=== PATIENT | male | born 1985 | race Caucasian/White ===

== ENCOUNTER 2023-08-11 20:17 | Emergency (ER) | payer BC ==
[~2023-08-11] VITALS: Ht 172.7 cm; Wt 90.7 kg
--- NOTE | 2023-08-11 21:05 | ED Lower Extremity ---
General Chief Complaint: Lower Extremity Stated Complaint: RIGHT KNEE/ANKLE SWELLING/PAIN Nursing Triage Note: TO ED VIA POV AND AMBULATORY TO ROOM 3 WITH C/O RIGHT KNEE SWELLING SINCE LAST SATURDAY AND RIGHT ANKLE SWELLING SINCE LAST SATURDAY. PT STATES HE WAS SEEN AT [facility] ON SATURDAY AND HE STATED THEY ASPIRATED FLUID FROM RIGHT KNEE, BUT DID NOT "TEST" IT. DENIES INJURY. Source: patient Exam Limitations: no limitations History of Present Illness Date Seen by Provider: Aug 11, 2023 Time Seen by Provider: 21:04 Onset: last week Allergies and Home Medications Allergies Coded Allergies: No Known Drug Allergies (Unverified , 08/11/23) Past Mwcckka-[id number]-[id number] Hx Patient Social History Tobacco Use?: Yes Tobacco type used: Cigarettes Smoking Status: Current Everyday Smoker Additional substance use comme: DENIES Alcohol Use?: Yes Alcohol type: Beer Alcohol Frequency: Daily Physical Exam Vital Signs Vital Signs - First Documented 08/11/23 20:39 Temp 36.7 Pulse 105 Resp 18 B/P (MAP) 131/99 (110) Pulse Ox 99 O2 Delivery Room Air Capillary Refill : Less Than 3 Seconds Height, Weight, BMI Height: '" Weight: lbs. oz. kg; 30.00 BMI Method: Progress/Results/Core Measures Results/Orders My Orders Orders - YESY GUAMAN MD Knee, 3 Views, Bilateral (08/11/23 21:13) Colchicine Tablet (Colchicine Tablet) (08/11/23 21:15) Hydrocodone/Apap 5/325 Tablet (Hydrocod (08/11/23 21:15) Colchicine Tablet (Colchicine Tablet) (08/11/23 21:30) Medications Given in ED Current Medications Medications Dose Ordered Sig/Radha Route Start Time Stop Time Status Last Admin Dose Admin Acetaminophen/ Hydrocodone Bitart 1 ea ONCE ONCE PO 08/11/23 21:15 08/11/23 21:16 DC 08/11/23 21:35 1 EA Colchicine 0.6 mg ONCE ONCE PO 08/11/23 21:30 08/11/23 21:31 DC 08/11/23 21:35 0.6 MG Colchicine 1.2 mg ONCE ONCE PO 08/11/23 21:15 08/11/23 21:16 DC 08/11/23 21:35 1.2 MG Vital Signs/I&O 08/11/23 20:39 Temp 36.7 Pulse 105 Resp 18 B/P (MAP) 131/99 (110) Pulse Ox 99 O2 Delivery Room Air Blood Pressure Mean: 110 Departure Impression Primary Impression: Knee pain Qualified Codes: M25.561 - Pain in right knee Disposition: HOME, SELF-CARE Condition: Stable Departure-Patient Inst. Decision time for Depature: 21:55 Referrals: NO,LOCAL PHYSICIAN (PCP/Family) Primary Care Physician Patient Instructions: Knee Pain ED Add. Discharge Instructions: Ice packs for swelling. Elevate for swelling. Hydrocodome 1 pill every 6 hours as needed for severe pain. Take the colchicine 0.6mg tablet 1 hour after the dose in the ER. If you have fever over 101, worsening swelling, redness or pain - please return to the ER for re-evaluation. Continue your ibuprofen always with food. You will eventually need a tap of your knee to verify gout inflammation. Scripts Hydrocodone/Acetaminophen (Hydrocodone-Acetamin 5-325 mg) 5 Mg-325 Mg Tablet 1 TAB PO Q6H PRN for PAIN-MODERATE (5-7), #8 TAB Prov: YESY GUAMAN MD 08/11/23 YESY GUAMAN MD Aug 11, 2023 21:05
[2023-08-11] MEDS ORDERED: HYDROcodone/ACETAMINOPHEN 5 MG/325 MG TABLET PO ONE (21:15)
[2023-08-11] MEDS ORDERED: COLCHICINE 0.6 MG TABLET PO ONE ×2 (21:15→21:30)
--- NOTE | 2023-08-11 21:34 | Diagnostic Imaging Report ---
Indication: Knee pain and swelling AP, oblique, and lateral views of both knees are obtained No fracture or acute bony abnormality seen. Joint spaces appear unremarkable. There is soft tissue swelling anterior to the right patella. There is no definite joint effusion. Impression: No bony abnormality of either knee. There is no significant joint space narrowing or definite joint effusion. There is soft tissue swelling anterior to the right patella. Dictated by: Dictated on workstation # [id number]
[2023-08-11] MEDS ORDERED: ACHD5005 PO (21:58)
[2023-08-11 22:00] VITALS: BP 129/94
== END 2023-08-11 22:01 | disposition home or self-care (01) ==
LOC: EDUNIT# 20:17 → ER 20:19
DX: M25.561 Pain in right knee (principal); F17.210 Nicotine dependence, cigarettes, uncomplicated